=== PATIENT | female | born 2000 | race Two or more races ===

== ENCOUNTER 2023-06-14 09:45 | Emergency (ER) | payer BC, SELFPAY ==
[2023-06-14 09:46] VITALS: BP 116/81
--- NOTE | 2023-06-14 10:01 | ED.GENMED ---
History of Present Illness
General
Chief Complaint: Skin Problem
Source: patient
Exam Limitations: none
Time Seen by Provider: 06/14/23 09:49
Nursing documentation reviewed up to this point in time: agreed with
Travel History
Have you had any contact with someone who has COVID-19?: No
Do you have any symptoms of coronavirus? Fever > 100 degrees, chills, cough, shortness of breath, sore throat, loss of taste or smell, muscle aches, or headache?: No
History of Present Illness
History of Present Illness:
This is a 23 y/o F with a PMH of pilonidal cyst presenting emergency department today with concerns of a reoccurrence of her pilonidal cyst. Patient states that for send this happened to her was last year, in which she presented to urgent care in
[place] and they had drained it. Patient was recommended to have general surgery follow-up to potentially this history, but patient never follow-up. Patient states that being this past week, she started to have a lot of pain in the area and
worsening pain with sitting. She started to have pain in that same area, and noticed a cyst and infection starting to recur. Patient denies any fevers or chills, any nausea or vomiting, any abdominal pain, any drainage from wound. Patient is a
student at [employer] and she is leaving school on Friday to go back home to [facility].
Past History
Past History
ED Past Medical History: None
ED Past Surgical History: None
Social History
Tobacco: Non-smoker
Review of Systems
Review of Systems
All Other Systems: ROS reviewed and negative except as documented in HPI and ROS
Phy Exam
Physical Exam
Physical Exam:
Vitals: Vital signs are stable, patient is afebrile
General: Patient is well appearing and in no acute distress; non-toxic
Skin: Warm and dry. There is a 2 cm abscess near the tailbone with surrounding fluctuance.
Head: Normocephalic, atraumatic
Eyes: Sclera non-icteric. EOMs intact. PERRLA.
Cardiac: Regular rate
Peripheral Vascular: No lower extremity swelling.
Pulm: Normal respiratory effort
Abdomen: No abdominal tenderness.
Genitourinary: No perirectal abscesses.
Neuro: CN II-XII intact, no focal neurologic deficits.
Psychiatric: Appropriate mood and affect.
Course
Orders/Labs/Results
Orders:
Orders
06/14/23 10:22
Ibuprofen [Motrin] 600 mg PO NOW STA
06/14/23 10:26
Ibuprofen [Motrin] 600 mg .ROUTE .STK-MED ONE
Vital Signs
Initial and Last Documented VS:
Initial Vital Signs
Temp Pulse Resp BP Pulse Ox
99.0 F 107 20 116/81 100
06/14/23 09:46 06/14/23 09:46 06/14/23 09:46 06/14/23 09:46 06/14/23 09:46
Last Documented Vital Signs
Temp Pulse Resp BP Pulse Ox
99.0 F 107 20 116/81 100
06/14/23 09:46 06/14/23 09:46 06/14/23 09:46 06/14/23 09:46 06/14/23 09:46
Procedures
Incision/Drainage/Joint Aspiration
Buttock:
Anethesia: 1% Lidocaine with Epi
Preparation: cleaned with Betadine
Type of procedure: incise and drain
Nature of site: cyst
Description of abscess: less than 3cm
Loculations broken up: No
How much fluid was obtained?: large amount
Fluid description: cloudy, purulent and serosanguinous
Treatment: left open for drainage
MDM/Problems Addressed
Differential Diagnosis Includes:
pilonidal cyst, cellulitis, perirectal abscess,
*Pulse Oximetry
Patient hypoxic: no
*Critical Care Note
Total Time (30-74mins, 75-104mins- exclusive of procedures): Not Applicable
Data Reviewed
Review of Other/Old Records Reveals: Records (Reviewed ER physician documentation from 10/06/2020) and Discharge Summary (No discharge summaries [employer] to review)
Source: patient and records
Patient Management
Escalation/DeEscalation of care consider admission/obs:
This is a 23 y/o F with a PMH of pilonidal cyst presenting emergency department today with concerns of a reoccurrence of her pilonidal cyst. Physical exam consistent with infected pilonidal cyst. This cyst was lanced which had copious drainage of
purulent fluid. Patient has never had general surgery follow-up for this issue. We discussed when to follow-up and how this likely will recur if she does not have capsule removal. Patient aware of this and will follow-up with her primary when she
returns home from school next week to address this issue. I discussed wound care with patient, answered all patient's questions. Discussed leaving wound open for drainage, discussed dressings, just sitz bath. No indication no indication for
antibiotic at this time. Return precautions were given. I reviewed case with one of our ER physicians Dr. Armando who is in agreement with plan
ED Attending Note
-
Portions of this chart may have been created with voice recognition software.� Occasional wrong word or��sound alike� substitutions may have occurred due to the inherent limitations of voice recognition software.
Discharge Plan
Departure
Patient Disposition: Home (Routine Discharge)
Date of Disposition: 06/14/23
Time of Disposition: 10:48
Patient with high blood pressure during this ER visit?: No
Condition: Good
Discharge Problem:
Pilonidal cyst
Instructions: Wound Care (DC), Pilonidal Cyst (DC)
Referrals:
UNKNOWN - PT DOES,NOT KNOW [Family Provider] -
Activity Restrictions/Additional Instructions:
Please return to the emergency department should you experience fevers or chills, redness surrounding the wound, recurrence, or any other signs or symptoms concerning to you.
Please make an appointment with your family doctor when you get home from school. It is important to see a general surgeon to follow up on this.
Sits baths may help with discomfort and encourage drainage. Please change dressing twice in the first 3 days as needed and than once the drainage slows you can change it once a day.
Interventions
Interventions:
*Risk Screen - Suicide Last Done: 06/14/23 11:22
*General Assessment Last Done: 06/14/23 11:22
*Neglect/Abuse Screening Last Done: 06/14/23 11:22
ED- Fall Risk Assessment Last Done: 06/14/23 11:22
*ED COVID-19 Vaccine History Last Done: 06/14/23 11:22
*Nursing Disposition Last Done: 06/14/23 11:22
ED-Skin Assessment Last Done: 06/14/23 11:22
Discharge Date and Time
Discharge Date/Time: 06/14/23 11:29
Print Language: DANISH
[2023-06-14] MEDS: MOTRIN 600 MG PO (10:27)
== END 2023-06-14 11:29 | disposition home or self-care (01) ==
LOC: EMR 09:45
PROVIDERS: EMERGENCY PHYSICIAN Emergency Medicine
DX: L05.91 Pilonidal cyst without abscess (principal)
CPT/HCPCS: 99283; 10060